=== PATIENT | female | born 1955 ===

== ENCOUNTER 2017-07-25 06:55 | Outpatient (CLI) | payer MEDICAID | END 2017-07-25 23:59 | disposition home or self-care (01) | LOC: DIABETIC 06:55 | PROVIDERS: ATTEND Surgery | DX: E66.01 Morbid (severe) obesity due to excess calories (principal) ==

== ENCOUNTER 2017-08-15 00:28 | Outpatient (CLI) | payer MEDICAID | END 2017-08-15 23:59 | disposition home or self-care (01) | LOC: DIABETIC 00:28 | PROVIDERS: ATTEND Surgery | DX: E66.01 Morbid (severe) obesity due to excess calories (principal); I10 Essential (primary) hypertension; E11.9 Type 2 diabetes mellitus without complications; K21.9 Gastro-esophageal reflux disease without esophagitis; M19.90 Unspecified osteoarthritis, unspecified site | CPT/HCPCS: 97802 ==

== ENCOUNTER 2017-09-05 02:55 | Outpatient (CLI) | payer MEDICAID | END 2017-09-05 23:59 | disposition home or self-care (01) | LOC: DIABETIC 02:55 | PROVIDERS: ATTEND Surgery | DX: E66.01 Morbid (severe) obesity due to excess calories (principal); K21.9 Gastro-esophageal reflux disease without esophagitis; E11.9 Type 2 diabetes mellitus without complications; I10 Essential (primary) hypertension; M19.90 Unspecified osteoarthritis, unspecified site | CPT/HCPCS: 97802 ==

== ENCOUNTER 2017-10-03 08:45 | Outpatient (CLI) | payer MEDICAID | END 2017-10-03 23:59 | disposition home or self-care (01) | LOC: DIABETIC 08:45 | PROVIDERS: ATTEND Surgery | DX: E66.01 Morbid (severe) obesity due to excess calories (principal); K21.9 Gastro-esophageal reflux disease without esophagitis; E11.9 Type 2 diabetes mellitus without complications; M19.90 Unspecified osteoarthritis, unspecified site | CPT/HCPCS: 97802 ==